=== PATIENT | female | born 1935 | race Caucasian/White ===

== ENCOUNTER 2024-05-14 12:15 | Inpatient (IN) | payer MEDICARE ==
[~2024-05-14] VITALS: Ht 195.6 cm; Wt 61.2 kg
[2024-05-14] MEDS: AZITHROMYCIN 500 MG in IV D5W 250 ML IV ONE (13:00)
[2024-05-14] MEDS: IV NS 0.9% 1,000 ML BAG IV ONE (13:00)
[2024-05-14 13:10] LABS: CALCIUM, SERUM 9.1 mg/dL (8.5-10.1); CARBON DIOXIDE 27 mmol/L (21-32); CHLORIDE 103 mmol/L (98-107); CREATININE 1.5 mg/dL (0.6-1.3); GLUCOSE 158 mg/dL (74-106); POTASSIUM 4.4 mmol/L (3.5-5.1); SODIUM SERUM 140 mmol/L (136-145); UREA NITROGEN, BLOOD 50 mg/dL (7-18)
[2024-05-14 13:17] LABS: ALANINE AMINOTRANSFERASE 19 U/L (12-78); ALBUMIN 2.9 g/dL (3.4-5.0); ALKALINE PHOSPHATASE 105 U/L (46-116); ASPARTATE AMINOTRANSFERASE 15 U/L (15-37); BILIRUBIN,DIRECT 0.1 mg/dL (0.0-0.2); BILIRUBIN,TOTAL 0.5 mg/dL (0.2-1.0); TOTAL PROTEIN, SERUM 7.3 g/dL (6.4-8.2)
[2024-05-14 13:20] LABS: LACTIC ACID 1.9 mmol/L (0.4-2.0)
[2024-05-14 13:21] LABS: INR 1.03 (0.91-1.10); PARTIAL THROMBOPLASTIN TIME 30.3 SEC (24.3-34.3); PROTHROMBIN TIME 10.9 SECS (9.2-11.1)
[2024-05-14] MEDS ORDERED: ACET-2030 PO (13:27)
[2024-05-14] MEDS ORDERED: CRAN425C6 PO (13:27)
[2024-05-14] MEDS ORDERED: ACET-868 PO (13:27)
[2024-05-14] MEDS ORDERED: BUDE0.5A4 IH (13:27)
[2024-05-14] MEDS ORDERED: LISI10TA29 PO (13:27)
[2024-05-14] MEDS ORDERED: CHOL100062 PO (13:27)
[2024-05-14] MEDS ORDERED: ASCO-352 PO (13:27)
[2024-05-14] MEDS ORDERED: EPOE1VIA12 SQ (13:27)
[2024-05-14] MEDS ORDERED: PETR113O TP (13:27)
[2024-05-14] MEDS ORDERED: SUCR1TAB PO (13:27)
[2024-05-14] MEDS ORDERED: CRAN3875 PO (13:27)
[2024-05-14] MEDS ORDERED: QUET25TA PO ×2 (13:27)
[2024-05-14] MEDS ORDERED: ATOR40TA PO (13:27)
[2024-05-14] MEDS ORDERED: FOLI0.4T6 PO (13:27)
[2024-05-14] MEDS ORDERED: MAGN400O6 PO (13:27)
[2024-05-14] MEDS ORDERED: PANT40TA2 PO (13:27)
[2024-05-14] MEDS ORDERED: ONDA-97 PO (13:27)
[2024-05-14] MEDS ORDERED: POLY17PO4 PO (13:27)
[2024-05-14] MEDS ORDERED: IPRA3AMP22 IH (13:27)
[2024-05-14] MEDS ORDERED: CLON0.1T PO (13:27)
[2024-05-14] MEDS ORDERED: MULT-213 PO (13:27)
[2024-05-14] MEDS ORDERED: MELA1TAB47 PO (13:27)
[2024-05-14] MEDS ORDERED: FERR325T23 PO (13:27)
[2024-05-14] MEDS ORDERED: CLOP75TA15 PO (13:27)
[2024-05-14] MEDS ORDERED: ASPI-1169 PO (13:27)
[2024-05-14 13:29] LABS: BASOPHILS % (AUTO) 0.1 % (0.0-2.0); HEMATOCRIT 36 % (33-45); HEMOGLOBIN 11.8 g/dL (11.5-14.8); LYMPHOCYTES # (AUTO) 0.7 K/uL (0.8-4.8); LYMPHOCYTES % (AUTO) 4.6 % (20.0-44.0); MEAN CORPUSCULAR HEMOGLOBIN 27 PG (26.0-33.0); MEAN CORPUSCULAR HGB CONC 33 g/dl (31.0-36.0); MEAN CORPUSCULAR VOLUME 81 fL (82-100); MONOCYTES # (AUTO) 1.5 K/uL (0.1-1.30); MONOCYTES % (AUTO) 9.8 % (2.0-12.0); NEUTROPHILS # (AUTO) 13.5 K/uL (1.8-8.9); NEUTROPHILS % (AUTO) 85.5 % (43.0-81.0); PLATELET COUNT (AUTO) 224 K/uL (150-450); RED BLOOD CELL COUNT(AUTO) 4.44 MIL/uL (4.0-5.2); WHITE BLOOD COUNT (AUTO) 15.7 K/uL (4.3-11.0)
[2024-05-14] MEDS ORDERED: PIPERACI/TAZO 3.375GM/D5W 50ML PB IV ONE (13:39)
[2024-05-14] MEDS: PIPERACILLIN /TAZOBACTAM 3.375 G in IV D5W 50 ML IV ONE (13:45)
[2024-05-14] MEDS: VANCOMYCIN 1 GM in IV D5W 250 ML IV ONE (14:05)
[2024-05-14] MEDS ORDERED: ASPIRIN 325 MG TABLET ONE (14:11)
[2024-05-14] MEDS: ASPIRIN 325 MG TABLET PO ONE (14:21)
[2024-05-14] MEDS ORDERED: MAG HYDROX/AL HYDROX/SIMETH 30 ML UDC PO PRN (15:30)
[2024-05-14] MEDS ORDERED: ACETAMINOPHEN 325 MG TABLET PO PRN (15:30)
[2024-05-14] MEDS ORDERED: ZOLPIDEM TARTRATE 5 MG TABLET PO PRN (15:30)
[2024-05-14] MEDS: IPRATROPIUM NEB FS 0.5 MG/2.5 ML AMPUL.NEB NEB ONE (15:30)
[2024-05-14] MEDS ORDERED: MAGNESIUM HYDROXIDE 30 ML UDC PO PRN (15:30)
[2024-05-14] MEDS ORDERED: Z GUARD REMEDY 4 OZ OINT TP PRN (15:30)
[2024-05-14] MEDS ORDERED: PIPERACILLIN /TAZOBACTAM 4.5 G in IV D5W 100 ML IV SCH (15:30)
[2024-05-14] MEDS ORDERED: ONDANSETRON HCL/PF 4 MG/2 ML VIAL IVP PRN (15:30)
[2024-05-14 16:00] VITALS: BP 104/54; TEMP 97.4; O2SAT 94
[2024-05-14] MEDS: ENOXAPARIN SODIUM 30 MG/0.3 ML DISP.SYRIN SQ SCH (17:20)
[2024-05-14] MEDS: IV NS 0.9% 1,000 ML IV PRN (17:21)
[2024-05-14 20:00] VITALS: BP 127/53; TEMP 98.6; O2SAT 93
[2024-05-14] MEDS: ZOSYN IVPB 3.375 G in IV D5W 50ml IV SCH (20:11)
[2024-05-15] VITALS (16 sets, daily range): BP systolic 123–151; BP diastolic 60–83; TEMP 97.7–98.5; O2SAT 91–99
[2024-05-15] MEDS: ALBUTEROL FS 2.5 MG/0.5 ML VIAL.NEB NEB SCH (02:39)
[2024-05-15] MEDS: IV NS 0.9% 1,000 ML IV PRN (02:50)
[2024-05-15 06:04] LABS: BASOPHILS % (AUTO) 0.1 % (0.0-2.0); HEMATOCRIT 32 % (33-45); LYMPHOCYTES # (AUTO) 0.6 K/uL (0.8-4.8); LYMPHOCYTES % (AUTO) 4.4 % (20.0-44.0); MEAN CORPUSCULAR HEMOGLOBIN 26 PG (26.0-33.0); MEAN CORPUSCULAR HGB CONC 31 g/dl (31.0-36.0); MEAN CORPUSCULAR VOLUME 83 fL (82-100); MONOCYTES # (AUTO) 1.2 K/uL (0.1-1.30); MONOCYTES % (AUTO) 9.3 % (2.0-12.0); NEUTROPHILS # (AUTO) 11.2 K/uL (1.8-8.9); NEUTROPHILS % (AUTO) 86.2 % (43.0-81.0); PLATELET COUNT (AUTO) 200 K/uL (150-450); RED BLOOD CELL COUNT(AUTO) 3.87 MIL/uL (4.0-5.2); RED CELL DISTRIBUTION WIDTH 20.4 % (11.5-15.0)
[2024-05-15 06:31] LABS: CALCIUM, SERUM 8.3 mg/dL (8.5-10.1); CARBON DIOXIDE 22 mmol/L (21-32); CHLORIDE 111 mmol/L (98-107); CREATININE 1.2 mg/dL (0.6-1.3); GLUCOSE 132 mg/dL (74-106); MAGNESIUM 2.2 mg/dL (1.8-2.4); PHOSPHORUS 2.5 mg/dL (2.5-4.9); SODIUM SERUM 145 mmol/L (136-145); UREA NITROGEN, BLOOD 42 mg/dL (7-18)
[2024-05-15 07:43] LABS: ANISOCYTOSIS 1+; BAND % (MANUAL) 2 % (0.0-5.0); HYPOCHROMASIA 1+; LYMPHOCYTES % (MANUAL) 4 % (16-48); MONOCYTES % (MANUAL) 10 % (0-11.0); NEUTROPHILS % (MANUAL) 84 (42-76); PLATELET ESTIMATE ADEQUATE
[2024-05-15] MEDS: PANTOPRAZOLE 40 MG VIAL IV SCH (08:46)
[2024-05-15] MEDS: VANCOMYCIN 750 MG in IV D5W 250 ML IV SCH (13:50)
[2024-05-15 15:32] LABS: APPEARANCE,URINE CLEAR (CLEAR); BILIRUBIN,URINE NEGATIVE (NEGATIVE); BLOOD, URINE 2+ Ery/uL (NEGATIVE); COLOR,URINE YELLOW (YELLOW); KETONES,URINE NEGATIVE (NEGATIVE); LEUKOCYTE ESTERASE ,URINE TRACE (NEGATIVE); NITRITE, URINE NEGATIVE (NEGATIVE); PROTEIN,URINE 1+ mg/dl (NEGATIVE); UGLUCOSE NEGATIVE (NEGATIVE)
[2024-05-15 15:47] LABS: ADD URINE CULTURE NO; BACTERIA,URINE 1+ /HPF (None Seen); WBC,URINE 0-2 /HPF (0-3)
[2024-05-15 15:48] LABS: SQUAMOUS EPITHELIAL CELL,UR 0-2 /HPF (None Seen)
[2024-05-15] MEDS: ENSURE ENLIVE 237 ML LIQUID (VANILLA) PO SCH (16:44)
[2024-05-16] VITALS (14 sets, daily range): BP systolic 113–150; BP diastolic 70–90; TEMP 97.5–98.8; O2SAT 90–100
[2024-05-16 08:15] LABS: BASOPHILS % (AUTO) 0.3 % (0.0-2.0); EOSINOPHILS # (AUTO) 0.1 K/uL (0.0-0.7); EOSINOPHILS % (AUTO) 0.8 % (0.0-6.0); HEMATOCRIT 33 % (33-45); HEMOGLOBIN 10.2 g/dL (11.5-14.8); LYMPHOCYTES # (AUTO) 0.6 K/uL (0.8-4.8); LYMPHOCYTES % (AUTO) 4.1 % (20.0-44.0); MEAN CORPUSCULAR HEMOGLOBIN 26 PG (26.0-33.0); MEAN CORPUSCULAR HGB CONC 31 g/dl (31.0-36.0); MEAN CORPUSCULAR VOLUME 83 fL (82-100); MONOCYTES # (AUTO) 1.1 K/uL (0.1-1.30); MONOCYTES % (AUTO) 7.8 % (2.0-12.0); NEUTROPHILS # (AUTO) 12.1 K/uL (1.8-8.9); PLATELET COUNT (AUTO) 224 K/uL (150-450); RED BLOOD CELL COUNT(AUTO) 3.93 MIL/uL (4.0-5.2); RED CELL DISTRIBUTION WIDTH 21.1 % (11.5-15.0); WHITE BLOOD COUNT (AUTO) 13.9 K/uL (4.3-11.0)
[2024-05-16 08:22] LABS: CARBON DIOXIDE 24 mmol/L (21-32); CHLORIDE 113 mmol/L (98-107); CREATININE 0.9 mg/dL (0.6-1.3); GLUCOSE 121 mg/dL (74-106); POTASSIUM 3.4 mmol/L (3.5-5.1); SODIUM SERUM 144 mmol/L (136-145); UREA NITROGEN, BLOOD 25 mg/dL (7-18)
[2024-05-16 08:49] LABS: BAND % (MANUAL) 2 % (0.0-5.0); NEUTROPHILS % (MANUAL) 81 (42-76)
[2024-05-16 08:50] LABS: ANISOCYTOSIS 1+; LYMPHOCYTES % (MANUAL) 4 % (16-48); METAMYELOCYTES % 1 % (0-0); MONOCYTES % (MANUAL) 8 % (0-11.0); MYELOCYTES % 1 % (0-0); PLATELET ESTIMATE ADEQUATE; REACTIVE LYMPHOCYTES 2 % (0-0)
[2024-05-16] MEDS: POTASSIUM CHLORIDE 20 MEQ TAB.PRT.SR PO ONE (11:10)
[2024-05-16 12:52] LABS: HIV-1 p24 ANTIGEN NON REACTIVE (NONREACTIVE); HIV-1/2 ANTIBODY NON REACTIVE (NONREACTIVE)
[2024-05-16] MEDS: POTASSIUM CL. PREMIX PERIPHER. 50 ML IV SCH (13:05)
[2024-05-16] MEDS: VANCOMYCIN 1 GM in IV D5W 250 ML IV SCH (15:02)
[2024-05-16] MEDS: SUCRALFATE 1 G TABLET PO SCH (16:56)
[2024-05-16] MEDS: QUETIAPINE FUMARATE 25 MG TABLET PO SCH (21:21)
[2024-05-16] MEDS: ATORVASTATIN 40 MG TABLET PO SCH (21:21)
[2024-05-16] MEDS: BUDESONIDE RESPULE INH 0.5 MG/2 ML AMPUL.NEB NEB SCH (23:26)
[2024-05-17] VITALS (16 sets, daily range): BP systolic 141–162; BP diastolic 53–95; TEMP 97.5–98.4; O2SAT 91–100
[2024-05-17 07:05] LABS: CALCIUM, SERUM 8.7 mg/dL (8.5-10.1); CARBON DIOXIDE 30 mmol/L (21-32); CHLORIDE 114 mmol/L (98-107); CREATININE 0.9 mg/dL (0.6-1.3); GLUCOSE 117 mg/dL (74-106); POTASSIUM 4.1 mmol/L (3.5-5.1); SODIUM SERUM 148 mmol/L (136-145); UREA NITROGEN, BLOOD 16 mg/dL (7-18)
[2024-05-17] MEDS: LISINOPRIL (10MG) 10 MG TABLET PO SCH (08:16)
[2024-05-17] MEDS: CLOPIDOGREL BISULFATE 75 MG TABLET PO SCH (08:16)
[2024-05-17] MEDS: ASPIRIN 81 MG TAB.CHEW PO SCH (08:17)
[2024-05-17] MEDS: QUETIAPINE FUMARATE 25 MG TABLET PO SCH (08:17)
[2024-05-17] MEDS: PANTOPRAZOLE 40 MG TABLET.DR PO SCH (08:17)
[2024-05-18] VITALS (16 sets, daily range): BP systolic 112–164; BP diastolic 46–110; TEMP 97.9–99.3; O2SAT 93–100
[2024-05-18 06:13] LABS: BASOPHILS % (AUTO) 0.2 % (0.0-2.0); EOSINOPHILS # (AUTO) 0.1 K/uL (0.0-0.7); EOSINOPHILS % (AUTO) 0.4 % (0.0-6.0); HEMATOCRIT 31 % (33-45); HEMOGLOBIN 9.7 g/dL (11.5-14.8); LYMPHOCYTES # (AUTO) 0.6 K/uL (0.8-4.8); LYMPHOCYTES % (AUTO) 4.4 % (20.0-44.0); MEAN CORPUSCULAR HEMOGLOBIN 26 PG (26.0-33.0); MEAN CORPUSCULAR HGB CONC 31 g/dl (31.0-36.0); MEAN CORPUSCULAR VOLUME 81 fL (82-100); MONOCYTES # (AUTO) 0.9 K/uL (0.1-1.30); MONOCYTES % (AUTO) 6.5 % (2.0-12.0); NEUTROPHILS # (AUTO) 12.8 K/uL (1.8-8.9); NEUTROPHILS % (AUTO) 88.5 % (43.0-81.0); PLATELET COUNT (AUTO) 280 K/uL (150-450); RED BLOOD CELL COUNT(AUTO) 3.81 MIL/uL (4.0-5.2); RED CELL DISTRIBUTION WIDTH 20.2 % (11.5-15.0); WHITE BLOOD COUNT (AUTO) 14.5 K/uL (4.3-11.0)
[2024-05-18 06:56] LABS: CALCIUM, SERUM 8.6 mg/dL (8.5-10.1); CARBON DIOXIDE 24 mmol/L (21-32); CHLORIDE 119 mmol/L (98-107); CREATININE 0.8 mg/dL (0.6-1.3); GLUCOSE 156 mg/dL (74-106); PHOSPHORUS 1.7 mg/dL (2.5-4.9); POTASSIUM 3.2 mmol/L (3.5-5.1); SODIUM SERUM 150 mmol/L (136-145); UREA NITROGEN, BLOOD 15 mg/dL (7-18)
[2024-05-18] MEDS: VANCOMYCIN 1 GM in IV D5W 250 ML IV SCH (07:40)
[2024-05-18] MEDS: POTASSIUM CHLORIDE 20 MEQ POWDER PACKET PO SCH (09:50)
[2024-05-18] MEDS: IV D5W 1,000 ML IV PRN (11:17)
[2024-05-18] MEDS: K PHOS NEUTRAL 250 MG TABLET PO ONE (15:44)
[2024-05-18] MEDS: BUDESONIDE RESPULE INH 0.5 MG/2 ML AMPUL.NEB NEB SCH (20:29)
[2024-05-19] VITALS (11 sets, daily range): BP systolic 124–163; BP diastolic 75–89; TEMP 97.7–98.3; O2SAT 93–99
[2024-05-19 07:38] LABS: CALCIUM, SERUM 8.6 mg/dL (8.5-10.1); CARBON DIOXIDE 25 mmol/L (21-32); CHLORIDE 113 mmol/L (98-107); GLUCOSE 200 mg/dL (74-106); POTASSIUM 3.1 mmol/L (3.5-5.1); SODIUM SERUM 148 mmol/L (136-145); UREA NITROGEN, BLOOD 13 mg/dL (7-18)
[2024-05-19] MEDS: POTASSIUM CHLORIDE 20 MEQ TAB.PRT.SR PO SCH (10:01)
[2024-05-20] VITALS (7 sets, daily range): BP systolic 135–176; BP diastolic 72–88; TEMP 97.5–98.2; O2SAT 95–97
[2024-05-20 06:26] LABS: BASOPHILS # (AUTO) 0.1 K/uL (0.0-0.2); BASOPHILS % (AUTO) 0.6 % (0.0-2.0); EOSINOPHILS # (AUTO) 0.5 K/uL (0.0-0.7); EOSINOPHILS % (AUTO) 3.3 % (0.0-6.0); HEMATOCRIT 31 % (33-45); HEMOGLOBIN 9.9 g/dL (11.5-14.8); LYMPHOCYTES # (AUTO) 0.7 K/uL (0.8-4.8); LYMPHOCYTES % (AUTO) 4.6 % (20.0-44.0); MEAN CORPUSCULAR HEMOGLOBIN 26 PG (26.0-33.0); MEAN CORPUSCULAR HGB CONC 32 g/dl (31.0-36.0); MEAN CORPUSCULAR VOLUME 81 fL (82-100); MONOCYTES # (AUTO) 0.6 K/uL (0.1-1.30); MONOCYTES % (AUTO) 3.6 % (2.0-12.0); NEUTROPHILS # (AUTO) 14.1 K/uL (1.8-8.9); NEUTROPHILS % (AUTO) 87.9 % (43.0-81.0); PLATELET COUNT (AUTO) 290 K/uL (150-450); RED BLOOD CELL COUNT(AUTO) 3.82 MIL/uL (4.0-5.2); RED CELL DISTRIBUTION WIDTH 19.9 % (11.5-15.0)
[2024-05-20 06:47] LABS: CALCIUM, SERUM 8.4 mg/dL (8.5-10.1); CARBON DIOXIDE 29 mmol/L (21-32); CHLORIDE 112 mmol/L (98-107); CREATININE 0.9 mg/dL (0.6-1.3); GLUCOSE 150 mg/dL (74-106); MAGNESIUM 1.9 mg/dL (1.8-2.4); PHOSPHORUS 3.3 mg/dL (2.5-4.9); POTASSIUM 3.3 mmol/L (3.5-5.1); SODIUM SERUM 148 mmol/L (136-145); UREA NITROGEN, BLOOD 9 mg/dL (7-18)
[2024-05-20] MEDS: POTASSIUM CHLORIDE 20 MEQ TAB.PRT.SR PO SCH (09:59)
[2024-05-20] MEDS ORDERED: PIPE3.379 IV (10:37)
== END 2024-05-20 14:25 | DRG 871 ==
LOC: ER 12:20 → TELE1 16:10 → MEDSG1 05-18 09:54
PROVIDERS: ADMIT Internal Medicine; ATTEND Nurse Practitioner Acute Care
DX: A41.9 Sepsis, unspecified organism (principal); G93.41 Metabolic encephalopathy; J15.69 Pneumonia due to other Gram-negative bacteria; J96.01 Acute respiratory failure with hypoxia; I21.A1 Myocardial infarction type 2; N17.0 Acute kidney failure with tubular necrosis; J44.0 Chronic obstructive pulmonary disease with (acute) lower respiratory infection; F03.93 Unspecified dementia, unspecified severity, with mood disturbance; E87.0 Hyperosmolality and hypernatremia; K29.70 Gastritis, unspecified, without bleeding; Z66 Do not resuscitate; Z20.822 Contact with and (suspected) exposure to COVID-19; J43.9 Emphysema, unspecified; D63.8 Anemia in other chronic diseases classified elsewhere; Z79.02 Long term (current) use of antithrombotics/antiplatelets; Z79.51 Long term (current) use of inhaled steroids; Z79.899 Other long term (current) drug therapy; Z79.82 Long term (current) use of aspirin; I25.10 Atherosclerotic heart disease of native coronary artery without angina pectoris; I12.9 Hypertensive chronic kidney disease with stage 1 through stage 4 chronic kidney disease, or unspecified chronic kidney disease; N18.9 Chronic kidney disease, unspecified; Y95 Nosocomial condition; Z89.612 Acquired absence of left leg above knee; F39 Unspecified mood [affective] disorder; E03.9 Hypothyroidism, unspecified; J45.909 Unspecified asthma, uncomplicated; Z87.891 Personal history of nicotine dependence; E87.6 Hypokalemia; E86.0 Dehydration
CPT/HCPCS: 31720; 36415; 36600; 71045-TC; 80048-TC; 80076-TC; 80202-TC; 81001; 82803-TC; 83605-TC; 83735-TC; 84100-TC; 84484-TC; 85025-TC; 85730-TC; 86803; 87040-TC; 87081-TC; 87086-TC; 87806; 92526; 92611-TC; 94760-TC; 94762-TC; 94799-TC; A4223; G0378; J0456; J1650; J2470; J2543; J3370; J3371; J3480; J7030; J7050; J7060; J7070; J7120